=== PATIENT | male | born 1960 | race Caucasian/White ===

== ENCOUNTER 2017-12-26 09:32 | Emergency (ER) | payer OTHER ==
[~2017-12-26] VITALS: Ht 172.7 cm; Wt 108.9 kg
[2017-12-26 09:36] VITALS: BP 152/102
--- NOTE | 2017-12-26 09:45 | NUR ---
PT AMBULATES TO BED 11
--- NOTE | 2017-12-26 10:00 | NUR ---
BIB SELF. PATIENT PRESENTS TO ED WITH INTERMITENT HEADACHE AND RINGING IN EARS x8 MONTHS. PT STATES HIS HEADACHE IS NOT OCCURING CURRENTLY BUT THE BUZZING SOUND IS CONSTANT. STATES THAT IN THE "LAST COUPLE WEEKS" IT HAS BEEN GETTING WORSE. DENIES N/V/D; SKIN IS PINK/WARM/DRY; AAOX4 WITH EVEN AND STEADY GAIT; LUNGS CLEAR BL; HR EVEN AND REGULAR; PT DENIES ANY FEVER, CP, SOB, OR COUGH AT THIS TIME; PATIENT STATES PAIN OF 0/10 AT THIS TIME; VSS; PATIENT POSITIONED FOR COMFORT; HOB ELEVATED; BEDRAILS UP X2; BED DOWN. ER MD MADE AWARE OF PT STATUS.
--- NOTE | 2017-12-26 10:05 | NUR ---
PT TO CT VIA WHEELCHAIR
[2017-12-26 10:41] VITALS: BP 152/102
--- NOTE | 2017-12-26 10:41 | NUR ---
Patient discharged with v/s stable. Written and verbal after care instructions given and explained. Patient verbalized understanding. Ambulatory with steady gait. All questions addressed prior to discharge. Advised to follow up with PMD within 2-3 days.
== END 2017-12-26 10:40 | disposition home or self-care (01) ==
LOC: MED 09:32
DX: H93.13 Tinnitus, bilateral (principal); J45.909 Unspecified asthma, uncomplicated; Z88.0 Allergy status to penicillin
CPT/HCPCS: 99281

== ENCOUNTER 2020-09-15 14:45 | Emergency (ER) | payer OTHER, MEDICARE ==
[~2020-09-15] VITALS: Ht 172.7 cm; Wt 108.9 kg
[2020-09-15 14:52] VITALS: BP 128/82
--- NOTE | 2020-09-15 15:04 | NUR ---
PT AMBULATED TO BED 12
--- NOTE | 2020-09-15 15:27 | NUR ---
Patient to RAD via wheelchair.
--- NOTE | 2020-09-15 15:34 | NUR ---
Patient returned from RAD via wheelchair.
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
[2020-09-15] MEDS ORDERED: KETOROLAC 30 MG/ML VIAL IM ONE (16:00)
--- NOTE | 2020-09-15 16:20 | NUR ---
PATIENT IS RESTING QUIETLY, TEARFUL, REASSURANCE PROVIDED.
--- NOTE | 2020-09-15 16:30 | NUR ---
Pt reports pain decreasing; rate 3/10.
[2020-09-15] MEDS ORDERED: NAPR-1704 PO (16:31)
[2020-09-15 16:41] VITALS: BP 128/82
== END 2020-09-15 16:41 | disposition home or self-care (01) ==
LOC: MED 14:45
DX: S16.1XXA Strain of muscle, fascia and tendon at neck level, initial encounter (principal); M25.511 Pain in right shoulder; Z88.0 Allergy status to penicillin; Z79.899 Other long term (current) drug therapy; V43.62XA Car passenger injured in collision with other type car in traffic accident, initial encounter; Y93.89 Activity, other specified; Y92.89 Other specified places as the place of occurrence of the external cause; Y99.8 Other external cause status
CPT/HCPCS: 72050; 96372; 99283; J1885

== ENCOUNTER 2022-07-21 15:31 | Emergency (ER) | payer MEDICARE, OTHER ==
[~2022-07-21] VITALS: Ht 170.2 cm; Wt 62.6 kg
[~2022-07-21 15:31] MED LIST: NAPR-1704 PO
[2022-07-21 16:20] VITALS: BP 141/82
--- NOTE | 2022-07-21 16:31 | NUR ---
PATIENT AMBULATED TO BED 3.
[2022-07-21 16:53] LABS: BASOPHILS % (AUTO) 0.5 % (0.0-2.0); EOSINOPHILS # (AUTO) 0.1 K/uL (0-0.4); EOSINOPHILS % (AUTO) 0.7 % (0.0-4.0); HEMATOCRIT 39.2 % (36-52); HEMOGLOBIN 13.5 g/dL (12.0-18.0); LYMPHOCYTES # (AUTO) 1.2 K/uL (2.0-11.5); LYMPHOCYTES % (AUTO) 13.3 % (20.5-51.1); MEAN CORPUSCULAR HEMOGLOBIN 31 pg (27-31); MEAN CORPUSCULAR HGB CONC 34 g/dL (33-37); MEAN CORPUSCULAR VOLUME 89.2 fL (80-94); MONOCYTES # (AUTO) 0.6 K/uL (0.8-1.0); MONOCYTES % (AUTO) 6.5 % (1.7-9.3); NEUTROPHILS # (AUTO) 7.1 K/uL (1.8-7.7); PLATELET COUNT (AUTO) 266 K/uL (140-450); RED BLOOD CELL COUNT(AUTO) 4.39 MIL/uL (4.20-6.10); RED CELL DISTRIBUTION WIDTH 14.2 % (11.6-13.7)
[2022-07-21] MEDS ORDERED: LIDOCAINE 2% 100 MG/5 ML UJET TP ONE (17:00)
--- NOTE | 2022-07-21 17:00 | NUR ---
UNABLE TO PLACE AGUILAR CATHETER WITH 16FR STANDARD CATHETER, 18FR COUDE AND 14FR COUDE WITH UROJET LIDOCAINE JELLClyde. MD CHOWDHURY MADE AWARE. ENOUGH URINE RECEIVED FOR UA. UROLOGY CONSULT REQUESTED BY . PT VSS. NAD NOTED. WILL CONT TO MONITOR PT.
[2022-07-21 17:13] LABS: ALBUMIN 4.2 g/dL (3.4-5.0); CARBON DIOXIDE 24.3 mmol/L (21-32); CREATININE 1.2 mg/dL (0.6-1.3); POTASSIUM 3.3 mmol/L (3.5-5.1); TOTAL BILIRUBIN 0.4 mg/dL (0.0-1.0)
[2022-07-21 17:48] LABS: APPEARANCE,URINE CLEAR (CLEAR); BILIRUBIN,URINE NEGATIVE (NEGATIVE); BLOOD, URINE 3+ (NEGATIVE); COLOR,URINE YELLOW (YELLOW); LEUKOCYTE ESTERASE ,URINE 2+ (NEGATIVE); NITRITE, URINE POSITIVE (NEGATIVE); UGLUCOSE 1+ (NEGATIVE)
[2022-07-21 18:40] LABS: RBC,URINE 20-50 /HPF (0-5)
[2022-07-21] MEDS ORDERED: IBUP-2213 PO ×2 (19:18→19:27)
[2022-07-21] MEDS ORDERED: SULF-59 PO ×2 (19:18→19:27)
[2022-07-21] MEDS ORDERED: TAMS0.4C96 PO ×2 (19:18→19:27)
[2022-07-21 19:20] VITALS: BP 133/76
--- NOTE | 2022-07-21 19:32 | NUR ---
Patient discharged with v/s stable. Written and verbal after care instructions given and explained. Patient alert, oriented and verbalized understanding of instructions. Ambulatory with steady gait. All questions addressed prior to discharge. ID band removed. Patient advised to follow up with PMD. Rx of FLOMAX, BACTRIM, IBUPROFEN given. Patient educated on indication of medication including possible reaction and side effects. Opportunity to ask questions provided and answered.
== END 2022-07-21 19:32 | disposition home or self-care (01) ==
LOC: MED 15:31
DX: R33.9 Retention of urine, unspecified (principal); R30.0 Dysuria; N39.0 Urinary tract infection, site not specified; N40.0 Benign prostatic hyperplasia without lower urinary tract symptoms; Z79.899 Other long term (current) drug therapy
CPT/HCPCS: 36415; 51702; 80053; 81001; 85025; 87086; 99284